=== PATIENT | female | born 2000 | race Caucasian/White ===

== ENCOUNTER 2022-10-16 11:26 | Outpatient (CLI) | payer BC, SELFPAY ==
[2022-10-16 12:08] LABS: Basophils Percent Auto 0.3 % (0.2-1.2); Eosinophils Absolute Auto 0.1 K/mm3 (0-0.3); Eosinophils Percent Auto 1.3 % (0-4.4); Hematocrit 39.5 % (37.0-47.0); Hemoglobin 13.5 g/dL (12.0-15.0); Immature Granulocyte Absolute 0.07 K/mm3 (0.00-0.031); Immature Granulocyte Percent A 0.6 % (0-0.5); Lymphocytes Absolute Auto 2.64 K/mm3 (0.9-3.2); Lymphocytes Percent Auto 23.6 % (18.3-44.2); Mean Corpuscular HGB Conc 34.2 g/dl (32-36); Mean Corpuscular Hemoglobin 30.7 pg (26-34); Mean Corpuscular Volume 89.8 fl (80-100); Mean Platelet Volume 9.6 fl (7.4-10.4); Monocytes Absolute Auto 0.5 K/mm3 (0.1-0.6); Monocytes Percent Auto 4.4 % (2.6-8.5); Neutrophils Absolute Auto 7.8 K/mm3 (1.3-6.7); Neutrophils Percent Auto 69.8 % (45.5-73.1); Platelet Count Result 246 k/mm3 (150-375); Red Cell Distribution Width 12.7 % (11.5-14.5); White Blood Count 11.2 K/mm3 (4.5-10.0)
[2022-10-16 12:57] LABS: HIV 1/2 Ab P24 Ag Result Negative (Negative)
[2022-10-16 13:26] LABS: Hepatitis B Surface Antigen Negative (Negative); Rubella IgG Antibody 9.7 IU/ML
[2022-10-19 08:44] LABS: Rapid Plasma Reagin Non-Reactive (NonReactive)
== END 2022-10-16 11:27 | disposition home or self-care (01) ==
LOC: ANHLAB 11:29
PROVIDERS: Visit Provider Student in an Organized Health Care Education/Training Program
DX: N91.2 Amenorrhea, unspecified (principal)
CPT/HCPCS: 36415; 84702; 85025; 86592; 86644; 86703; 86747; 86762; 86787; 86850; 86900; 86901; 87086; 87340; G0432

== ENCOUNTER 2023-01-23 10:57 | Outpatient (CLI) | payer BC, SELFPAY ==
[2023-01-23 12:36] LABS: Basophils Absolute Auto 0.1 K/mm3 (0.0-0.1); Basophils Percent Auto 0.4 % (0.2-1.2); Eosinophils Absolute Auto 0.1 K/mm3 (0-0.3); Eosinophils Percent Auto 0.8 % (0-4.4); Hematocrit 36.9 % (37.0-47.0); Hemoglobin 12.2 g/dL (12.0-15.0); Immature Granulocyte Absolute 0.27 K/mm3 (0.00-0.031); Lymphocytes Absolute Auto 2.34 K/mm3 (0.9-3.2); Lymphocytes Percent Auto 17.3 % (18.3-44.2); Mean Corpuscular HGB Conc 33.1 g/dl (32-36); Mean Corpuscular Volume 93.9 fl (80-100); Monocytes Percent Auto 7.3 % (2.6-8.5); Neutrophils Absolute Auto 9.7 K/mm3 (1.3-6.7); Neutrophils Percent Auto 72.2 % (45.5-73.1); Platelet Count Result 213 k/mm3 (150-375); Red Blood Count 3.93 M/mm3 (4.2-5.4); Red Cell Distribution Width 12.6 % (11.5-14.5); White Blood Count 13.5 K/mm3 (4.5-10.0)
[2023-01-23 12:51] LABS: Glucose 1 Hour PP 50gm Dose 101 mg/dL
[2023-01-23 13:15] LABS: Free T4 Free Thyroxine 0.86 ng/mL (0.78-2.19)
[2023-01-23 13:33] LABS: HIV 1/2 Ab P24 Ag Result Negative (Negative)
== END 2023-01-23 10:58 | disposition home or self-care (01) ==
LOC: ANHLAB 10:59
PROVIDERS: PCP Nurse Practitioner Family; Visit Provider Obstetrics & Gynecology
DX: E03.9 Hypothyroidism, unspecified (principal); O99.280 Endocrine, nutritional and metabolic diseases complicating pregnancy, unspecified trimester; Z3A.00 Weeks of gestation of pregnancy not specified
CPT/HCPCS: 36415; 82947; 84439; 84443; 85025; 86703; G0432

== ENCOUNTER 2023-03-01 09:28 | Outpatient (CLI) | payer BC, SELFPAY ==
[2023-03-01 09:56] VITALS: BP 130/94; PULSE 98
[2023-03-01 10:01] VITALS: BP 125/83; PULSE 103
[2023-03-01 10:16] VITALS: BP 125/80; PULSE 93
[2023-03-01 10:31] VITALS: BP 119/74; PULSE 91
[2023-03-01 10:46] VITALS: BP 121/81; PULSE 99
--- NOTE | 2023-03-01 10:50 | PC.NURSE ---
Called Dr. Reza with pt status. Informed of generalized rash that has improved without treatment. Pt states that she is still itchy, but the raised rash is gone. Headache is off and on the past couple of days, relieved by Tylenol. BPs given. Informed of FHTs below baseline a couple of times, but baby is moving a large amount. May D/C home.
== END 2023-03-01 11:10 ==
LOC: ANHOBOP 03-02 06:51 → ANHOBPP 03-02 06:51
PROVIDERS: PCP Nurse Practitioner Family; Visit Provider Obstetrics & Gynecology
DX: R51.9 Headache, unspecified (principal); R21 Rash and other nonspecific skin eruption
CPT/HCPCS: 59025; 99199

== ENCOUNTER 2023-03-15 10:02 | Outpatient (CLI) | payer BC, SELFPAY ==
[2023-03-15 10:30] VITALS: BP 122/78; PULSE 94
[2023-03-15 10:30] LABS: Basophils Percent Auto 0.4 % (0.2-1.2); Eosinophils Absolute Auto 0.1 K/mm3 (0-0.3); Eosinophils Percent Auto 1.1 % (0-4.4); Hematocrit 40.4 % (37.0-47.0); Immature Granulocyte Absolute 0.09 K/mm3 (0.00-0.031); Immature Granulocyte Percent A 0.9 % (0-0.5); Lymphocytes Absolute Auto 2.09 K/mm3 (0.9-3.2); Lymphocytes Percent Auto 20.7 % (18.3-44.2); Mean Corpuscular HGB Conc 32.2 g/dl (32-36); Mean Corpuscular Hemoglobin 29.7 pg (26-34); Mean Corpuscular Volume 92.2 fl (80-100); Monocytes Absolute Auto 0.7 K/mm3 (0.1-0.6); Monocytes Percent Auto 7.1 % (2.6-8.5); Neutrophils Absolute Auto 7.1 K/mm3 (1.3-6.7); Neutrophils Percent Auto 69.8 % (45.5-73.1); Platelet Count Result 180 k/mm3 (150-375); Red Blood Count 4.38 M/mm3 (4.2-5.4); Red Cell Distribution Width 12.5 % (11.5-14.5); White Blood Count 10.1 K/mm3 (4.5-10.0)
[2023-03-15 10:41] LABS: Alanine Aminotransferase 23 U/L (6-35); Albumin Level 3.4 g/dL (3.5-5.1); Alkaline Phosphatase 148 U/L (38-126); Anion Gap 6 mmol/L (8-16); Aspartate Amino Transferase 24 U/L (14-36); Bilirubin,Total 0.4 mg/dL (0.2-1.3); Blood Urea Nitrogen 8 mg/dL (7-17); Calcium 8.4 mg/dL (8.4-10.2); Carbon Dioxide 24 mmol/L (22-30); Chloride 103 mmol/L (98-107); Estimated Glomerular Filt Rate > 60; Glucose 76 mg/dL (65-110); Potassium 3.9 mmol/L (3.4-5.0); Sodium 133 mmol/L (137-145)
[2023-03-15 10:45] VITALS: BP 115/78; PULSE 93
[2023-03-15 11:00] VITALS: BP 111/70; PULSE 83
[2023-03-15 11:15] VITALS: BP 106/72; PULSE 84
[2023-03-15 11:37] LABS: Appearance Urine Slightly Cloudy (Clear); Bilirubin Urine Negative (Negative); Blood Urine 3+ (Negative); Color Urine Yellow (Yellow); Glucose Urine UA Negative (Negative); Ketones Urine Negative (Negative); Leukocyte Esterase Ur 1+ LEU/UL (NEGATIVE); Nitrate Urine Negative (Negative); Protein Urine Trace mg/dL (Negative); Specific Grav Ur 1.015 (1.001-1.035); Urobilinogen Urine 0.2 mg/dL (<2.0)
[2023-03-15 11:39] LABS: Add Urine Microscopic? YES
[2023-03-15 11:48] LABS: Creatinine Urine 145.4 mg/dL
[2023-03-15 11:50] VITALS: BP 120/78; PULSE 97
[2023-03-15 11:54] LABS: Bacteria Urine 4+ /hpf; Need Manual Microscopic Reviewed; RBC Urine 51-100 /hpf (0-2); Squamous Epithelial Cell Urine Many /hpf (Few); WBC Urine 21-50 /hpf (0-3)
[2023-03-15 12:31] LABS: Total Protein Urine Random 10 mg/dL; Ur Ttl Prot Creatinine Ratio 0.07 mg/mg (0-0.20)
== END 2023-03-15 11:50 | disposition home or self-care (01) ==
LOC: ANHOBOP 10:07 → ANHOBPP 10:10
PROVIDERS: PCP Nurse Practitioner Family; Visit Provider Obstetrics & Gynecology
DX: O26.899 Other specified pregnancy related conditions, unspecified trimester (principal); R03.0 Elevated blood-pressure reading, without diagnosis of hypertension
CPT/HCPCS: 36415; 59025; 80053; 81001; 82570; 84156; 84550; 85025; 87086; 87088; 99199

== ENCOUNTER 2023-03-27 06:58 | Observation (INO) | payer BC, SELFPAY ==
[2023-03-27 10:43] VITALS: BMI 32.0
--- NOTE | 2023-03-27 10:43 | LDADM ---
This patient, Laura Vincent, was admitted to Labor/Delivery/Recovery 105 on 03/27/23 at 06:58. Plans for labor, pain management and were discussed with patient. Patient/family oriented to hospital policies and general routines including ID bracelet, bed and alarms, visiting hours, pain management, procedures, bathroom and other care routines, personal items, smoking policy, room service/diet and guest tray routines, infant security routines, and visiting hours. Patient/Family are encouraged to report perceived risks to care and to ask questions if they do not understand what they are told or what they should do. See OBIX for further documentation.
--- NOTE | 2023-04-05 09:50 | PM.OBTRLD ---
OB - Triage/Final Diagnosis Visit Information Comments/Additional reasons for admission: I have assessed the risk for this patient, Laura Vincent, and determined that she would benefit from observation care. Final Diagnosis (1) False labor: Code(s): O47.9 - False labor, unspecified Status: Acute
== END 2023-03-27 09:12 | disposition home or self-care (01) ==
PROVIDERS: Admitting Provider Obstetrics & Gynecology; PCP Nurse Practitioner Family; Visit Provider Obstetrics & Gynecology
DX: O47.1 False labor at or after 37 completed weeks of gestation (principal); Z3A.37 37 weeks gestation of pregnancy
CPT/HCPCS: G0378; G0379

== ENCOUNTER 2023-03-28 17:51 | Observation (INO) | payer BC, SELFPAY ==
--- NOTE | 2023-03-28 17:51 | OBADM ---
This patient, Laura Vincent, admitted to the OB room Labor/Delivery/Recovery 104 for observation. Patient/family oriented to hospital policies and general routines including ID bracelet, bed and alarms, visiting hours, pain management, procedures, bathroom and other care routines, personal items, smoking policy, room service/diet, and visiting hours. Patient/Family are encouraged to report perceived risks to care and to ask questions if they do not understand what they are told or what they should do.
--- NOTE | 2023-03-28 20:55 | PC.NURSE ---
Dr. White updated on patient maternal and assessments. Notified of repeated SVE after monitoring. FHT appropriate for gestational age. Contractions palpate mild-moderate with soft abdomen between. Orders received.
--- NOTE | 2023-03-28 20:56 | PC.NURSE ---
Plan of care discussed with patient. Patient offered to continue monitoring at the hospital or she could go home to labor. Patient states she would like to go home at this time.
[2023-03-28 21:00] VITALS: RESP 16; TEMP 36.7
== END 2023-03-28 21:23 | disposition home or self-care (01) ==
PROVIDERS: Admitting Provider Obstetrics & Gynecology; PCP Nurse Practitioner Family; Visit Provider Obstetrics & Gynecology
DX: O47.1 False labor at or after 37 completed weeks of gestation (principal); Z3A.37 37 weeks gestation of pregnancy
CPT/HCPCS: G0378; G0379

== ENCOUNTER 2023-04-02 07:27 | Outpatient (RCR) | payer BC, SELFPAY ==
[2023-03-17 09:16] VITALS: BP 110/63
[2023-03-22 14:21] LABS: Basophils Percent Auto 0.2 % (0.2-1.2); Eosinophils Absolute Auto 0.1 K/mm3 (0-0.3); Eosinophils Percent Auto 0.4 % (0-4.4); Hematocrit 39.4 % (37.0-47.0); Hemoglobin 12.7 g/dL (12.0-15.0); Immature Granulocyte Absolute 0.11 K/mm3 (0.00-0.031); Immature Granulocyte Percent A 0.9 % (0-0.5); Lymphocytes Absolute Auto 2.16 K/mm3 (0.9-3.2); Lymphocytes Percent Auto 17.6 % (18.3-44.2); Mean Corpuscular HGB Conc 32.2 g/dl (32-36); Mean Corpuscular Hemoglobin 29.3 pg (26-34); Mean Platelet Volume 11.7 fl (7.4-10.4); Monocytes Absolute Auto 0.7 K/mm3 (0.1-0.6); Monocytes Percent Auto 5.9 % (2.6-8.5); Neutrophils Absolute Auto 9.2 K/mm3 (1.3-6.7); Platelet Count Result 163 k/mm3 (150-375); Red Blood Count 4.33 M/mm3 (4.2-5.4); Red Cell Distribution Width 12.5 % (11.5-14.5); White Blood Count 12.3 K/mm3 (4.5-10.0)
[2023-03-22 14:28] LABS: Appearance Urine Cloudy (Clear); Bacteria Urine 3+ /hpf; Bilirubin Urine Negative (Negative); Blood Urine Negative (Negative); Color Urine Yellow (Yellow); Glucose Urine UA Negative (Negative); Ketones Urine Negative (Negative); Leukocyte Esterase Ur 1+ LEU/UL (NEGATIVE); Nitrate Urine Negative (Negative); Protein Urine Negative (Negative); RBC Urine 0-2 /hpf (0-2); Specific Grav Ur 1.024 (1.001-1.035); Squamous Epithelial Cell Urine Few /hpf (Few); Urobilinogen Urine 0.2 mg/dL (<2.0); WBC Urine 21-50 /hpf (0-3); pH Urine 6.5 (5.0-9.0)
[2023-03-22 14:32] LABS: Alanine Aminotransferase 22 U/L (6-35); Albumin Level 3.3 g/dL (3.5-5.1); Alkaline Phosphatase 140 U/L (38-126); Anion Gap 7 mmol/L (8-16); Aspartate Amino Transferase 27 U/L (14-36); Bilirubin,Total 0.4 mg/dL (0.2-1.3); Blood Urea Nitrogen 11 mg/dL (7-17); Calcium 8.7 mg/dL (8.4-10.2); Carbon Dioxide 21 mmol/L (22-30); Chloride 105 mmol/L (98-107); Estimated Glomerular Filt Rate > 60; Glucose 85 mg/dL (65-110); Sodium 133 mmol/L (137-145); Uric Acid 4.1 mg/dL (2.5-7.5)
[2023-03-22 14:36] LABS: Add Urine Microscopic? YES
[2023-03-22 14:43] VITALS: BP 126/84
[2023-03-22 17:07] LABS: Creatinine Urine 140.5 mg/dL; Total Protein Urine Random 12 mg/dL; Ur Ttl Prot Creatinine Ratio 0.09 mg/mg (0-0.20)
[2023-03-26 16:29] LABS: Creatinine Urine 113.5 mg/dL; Total Protein Urine Random 12 mg/dL; Ur Ttl Prot Creatinine Ratio 0.11 mg/mg (0-0.20)
[2023-03-26 17:05] VITALS: BP 135/81
[2023-04-02 08:06] VITALS: BP 124/82; PULSE 84
== END 2023-06-15 23:59 | disposition home or self-care (01) ==
LOC: ANHOBOP 07:27
PROVIDERS: PCP Nurse Practitioner Family; Visit Provider Obstetrics & Gynecology
DX: O36.8130 Decreased fetal movements, third trimester, not applicable or unspecified (principal); Z3A.35 35 weeks gestation of pregnancy; Z3A.36 36 weeks gestation of pregnancy; Z3A.37 37 weeks gestation of pregnancy
CPT/HCPCS: 36415; 59025; 80053; 81001; 82570; 84156; 84550; 85025; 87086; 87088

== ENCOUNTER 2023-04-10 05:59 | Inpatient (IN) | payer BC, SELFPAY ==
[2023-04-10] VITALS (140 sets, daily range): BP systolic 97–158; BP diastolic 54–101; PULSE 65–227; RESP 16–18; TEMP 36.4–37; O2SAT 91–100; BMI 32.4
--- NOTE | 2023-04-10 06:49 | LDADM ---
This patient, Laura Vincent, was admitted to Labor/Delivery/Recovery 107 on 04/10/23 at 05:59. Plans for labor, pain management and were discussed with patient. Patient/family oriented to hospital policies and general routines including ID bracelet, bed and alarms, visiting hours, pain management, procedures, bathroom and other care routines, personal items, smoking policy, room service/diet and guest tray routines, infant security routines, and visiting hours. Patient/Family are encouraged to report perceived risks to care and to ask questions if they do not understand what they are told or what they should do. See OBIX for further documentation.
[2023-04-10 06:59] LABS: Basophils Absolute Auto 0.1 K/mm3 (0.0-0.1); Basophils Percent Auto 0.4 % (0.2-1.2); Eosinophils Absolute Auto 0.1 K/mm3 (0-0.3); Eosinophils Percent Auto 0.8 % (0-4.4); Hematocrit 41.2 % (37.0-47.0); Hemoglobin 13.3 g/dL (12.0-15.0); Immature Granulocyte Absolute 0.12 K/mm3 (0.00-0.031); Immature Granulocyte Percent A 0.8 % (0-0.5); Lymphocytes Absolute Auto 3.12 K/mm3 (0.9-3.2); Mean Corpuscular HGB Conc 32.3 g/dl (32-36); Mean Corpuscular Hemoglobin 28.4 pg (26-34); Neutrophils Absolute Auto 9.8 K/mm3 (1.3-6.7); Platelet Count Result 179 k/mm3 (150-375); Red Blood Count 4.68 M/mm3 (4.2-5.4); Red Cell Distribution Width 13.2 % (11.5-14.5); White Blood Count 14.2 K/mm3 (4.5-10.0)
[2023-04-10] MEDS: LACTATED RINGERS 1,000 ML 125 ML IV CONT ×2 (07:30→09:01)
[2023-04-10] MEDS: OXYTOCIN 30 UNITS/NS 500 ML 30 UNITS/500 ML BAG 6 UNITS IV CONT (07:30)
--- NOTE | 2023-04-10 07:47 | WPDOBADMIT ---
Obstetrics - Admit Note Admission Note: record reviewed. No pertinent additions to the history and/or any subsequent changes in the physical findings that are not consistent with the expected course of the were found. Additions to the history and/or subsequent changes in the physical findings follow. None.
--- NOTE | 2023-04-10 07:47 | WPDHPUPDATE1 ---
History and Physical Update Update Date/Time: 04/10/23 07:47 History and Physical has been reviewed, including an updated exam of the patient. There are NO changes in the patient's condition. Risks, benefits, and alternatives have been discussed and questions answered. Patient agrees to proceed with procedure.
[2023-04-10] MEDS: fentaNYL CITRATE INJ (*CRX) 100 MCG/2 ML VIAL 50 MCG IV PUSH (08:07)
--- NOTE | 2023-04-10 08:20 | WPDANESEPP ---
Anes - Eval Pre Procedure Procedure: Labor Pain Management Date/Time: 04/10/23 08:20 Surgeon: Juaquin Preop Diagnosis: Pain during labor Pre Op Diagnosis: IOL Patient Data Age: 22 Gender: F Height: 1.6 m Weight: 83 kg Last Vital Signs Temp 97.7 F 04/10/23 06:34 Pulse 75 04/10/23 08:09 Resp 18 04/10/23 06:34 BP 132/89 04/10/23 08:09 Pulse Ox 94 04/10/23 08:19 O2 Del Method Room Air 04/10/23 06:48 Allergies Allergy/AdvReac Type Severity Reaction Status Date / Time No Known Allergies Allergy Verified 04/06/23 10:27 Home Medications Medication Instructions Recorded Confirmed Type levothyroxine 25 mcg capsule 25 mcg PO DAILY 01/14/22 04/10/23 History vit no.95-ferrous 1 tablet PO DAILY 04/02/23 04/10/23 History fumarate 28 mg-folic acid 800 mcg tablet () Laboratory Tests 04/10/23 06:28 WBC 14.2 H K/mm3 (4.5-10.0) RBC 4.68 M/mm3 (4.2-5.4) Hgb 13.3 g/dL (12.0-15.0) Hct 41.2 % (37.0-47.0) MCV 88.0 fl (80-100) MCH 28.4 pg (26-34) MCHC 32.3 g/dl (32-36) RDW 13.2 % (11.5-14.5) Plt Count 179 k/mm3 (150-375) MPV 12.0 H fl (7.4-10.4) Immature Gran % (Auto) 0.8 H % (0-0.5) Neut % (Auto) 69.0 % (45.5-73.1) Lymph % (Auto) 22.0 % (18.3-44.2) Russell % (Auto) 7.0 % (2.6-8.5) Eos % (Auto) 0.8 % (0-4.4) Baso % (Auto) 0.4 % (0.2-1.2) Lymph # (Auto) 3.12 K/mm3 (0.9-3.2) Russell # (Auto) 1.0 H K/mm3 (0.1-0.6) Eos # (Auto) 0.1 K/mm3 (0-0.3) Baso # (Auto) 0.1 K/mm3 (0.0-0.1) Abs Immat Gran (auto) 0.12 H K/mm3 (0.00-0.031) Absolute Neuts (auto) 9.8 H K/mm3 (1.3-6.7) Absolute Nucleated RBC 0.0 K/mm3 (0.0-0.012) Nucleated RBC % 0.0 % (0.0-0.2) RPR Pending Blood Type A Positive Antibody Screen Negative Patient hx anesthesia problems: none Family hx anesthesia problems: none Results Review: All pre-operative results and documents have been reviewed as part of the pre-operative evaluation. [facility] Surgical History Surgical History [place] teeth extracted Family History Family History Other Patient denies significant medical history Social History Social History Smoking status: Never smoker Alcohol intake: former Alcohol use details: socially Substance use: never Substance use type: does not use Lack of Transportation: No Lack of Food: Never True Current Housing: I Have Housing Concerned About Future Housing: No Difficulty Paying Gas/Electric Bills: No Difficulty Paying for Meds: No Currently Unemployed: No Education: Associate Degree Difficulty w/ Childcare or Family Care: No Living arrangements: with family Additional living arrangements comments: Occupation/Education: occupation Additional occupation/education comments: teacher Gender identity (if verbalized by the patient): Female Sexual Orientation (if Verbalized by the Patient): Straight or Heterosexual Spiritual care concerns: No Exam Day of Procedure 04/10/23 08:20
[2023-04-10] MEDS: ONDANSETRON INJ 4 MG/2 ML VIAL IV PUSH (15:30)
[2023-04-10] MEDS: OXYTOCIN 30 UNITS/NS 500 ML 30 UNITS/500 ML BAG 125 UNITS IV CONT (16:45)
--- NOTE | 2023-04-10 16:52 | PM.OBPRVD ---
OB - Vaginal Delivery Note Procedure Delivery date: 04/10/23 Induction method: AROM Delivery augmentation: Pitocin Delivery monitor: External FHT and External Uterine Route of delivery: Episiotomy description: None Laceration Description: Perineal - 3rd Degree Delivery repair: vicryl and chromic Specimen: No Quantitative Blood Loss (ml): 500 Anesthesia type: Epidural Disposition: Floor Complications: No immediate complications Narrative: Draped usual manner this procedure. Maternal expulsive efforts readily delivered vertex with nuchal cord noted and delivered through. Rest of baby was delivered difficulty. Cord clamped cut and placenta delivered spontaneously. Uterus was well contracted. Cervix vagina and vulva were inspected with third-degree laceration noted. rectal sphincter was approximated using 0 Vicryl with 3 interrupted sutures with good approximation noted. The vaginal mucosa was then approximated using 2-0 chromic in a running interlocking manner , deep tissue was approximated in a subcuticular layer with good approximation as well. Uterus again Inspected and was well contracted with minimal bleeding. [place] Baby Weeks of gestation at delivery: 39 gender: Female Weight (pounds): 7 Weight (ounces): 8 presentation: vertex position: Right Occiput Anterior Placenta delivery description: Spontaneous Cord Vessel Description: 3 Vessels, Nuchal Cord and Reduced score one minute: 7 score five minutes: 9 AMG Delivery Billing Delivery Delivery: Delivery Charge
[2023-04-10] MEDS: WITCH HAZEL 40 PADS 1 PAD TOPICAL (18:00)
[2023-04-10] MEDS: BENZOCAINE 20% AER SPR (*SP) 56 GM CAN 1 SPRAY TOPICAL (18:00)
[2023-04-10] MEDS: HYDROcodone/acetaminophen (*CRX) 5-325 MG TABLET 1 TAB PO ×2 (19:40→22:41)
[2023-04-10] MEDS: IBUPROFEN 600 MG TABLET PO (19:40)
--- NOTE | 2023-04-10 20:25 | OBPPTRN ---
Patient transferred to post room # 282 via ( wheelchair ). Support person present. Oriented to unit, room, information board, rooming in, admission packet and security measures. Patient verbalizes understanding.
[2023-04-11] VITALS: BP 118/79; PULSE 76; RESP 18; TEMP 36.6; O2SAT 97
[2023-04-11] MEDS: HYDROcodone/acetaminophen (*CRX) 5-325 MG TABLET 1 TAB PO ×4 (04:34→21:35)
[2023-04-11] MEDS: IBUPROFEN 600 MG TABLET PO ×4 (04:34→21:35)
[2023-04-11 06:09] LABS: Hematocrit 34.9 % (37.0-47.0); Hemoglobin 11.2 g/dL (12.0-15.0)
--- NOTE | 2023-04-11 07:41 | PM.OBDSVD ---
DS: Admitting Diagnosis Discharge Date 04/11/2023 Admitting Diagnosis DS: Discharge Diagnosis Discharge Diagnosis (1) , delivered: Code(s): O80 - Encounter for full-term uncomplicated delivery Status: Acute OB - DS: Summary OB Procedures : None OB Procedures Intrapartum: Spontaneous Vag Delivery OB Procedures: : None Peripartum Data Laceration Description: Perineal - 3rd Degree Episiotomy description: None Time Spent with Patient Time attestation: Total time spent providing and/or coordinating discharge services: DS: Data Data Completed and Pending Labs on day of discharge: Labs from last 24 hours 04/11/23 04:40 Hgb 11.2 L Hct 34.9 L Discharge Plan Discharge Discharging Clinician: Ashish Reza Patient Disposition: Home, Self-Care Activity: as tolerated Diet: as tolerated Patient Instructions: Antibiotic Form Stand Alone Forms: General Discharge Information Follow-up/Referrals: Ashish Reza MD [Physician] - 3 Weeks Discharge Medications: New ibuprofen 600 mg Tablet 600 mg PO Q6H PRN (Reason: Cramping) Qty: 30 0RF Continued levothyroxine 25 mcg capsule 25 mcg PO DAILY PNV cmb#95-ferrous fumarate-FA [] 28 mg iron- 800 mcg Tablet 1 tablet PO DAILY Date of admission: 04/10/23 05:59 Primary Care Provider: Misa,Ronit Rizzo Admitting Provider: Ashish Reza Attending physician on admission: Ashish Reza Condition: Stable
[2023-04-11] MEDS: DOCUSATE SODIUM 100 MG CAPSULE PO ×2 (08:47→16:34)
[2023-04-11] MEDS: MULTIVIT/MIN/PREN/FOL AC/IRON TABLET 1 TAB PO (08:47)
[2023-04-11] MEDS: LEVOTHYROXINE SODIUM 25 MCG TABLET PO (08:47)
[2023-04-11 08:50] VITALS: BP 111/72; PULSE 69; RESP 18; TEMP 36.3
[2023-04-11 11:43] VITALS: BP 107/66; PULSE 71; RESP 17; TEMP 36.4; O2SAT 98
--- NOTE | 2023-04-11 15:25 | WPDANLDPN2 ---
Anes-Prog Note L&D Date/Time: 04/11/23 15:25 Comfortable throughout: labor and delivery Neuraxial method: epidural Epidural/Spinal procedure site: clean & non-tender Neuro status: Neuro function grossly intact. Cardiovascular status: normal Respiratory status: normal Airway patency: baseline Mental status: baseline Post-Op hydration status: normal Vital Signs: Last Vital Signs Temp 97.6 F 04/11/23 11:43 Pulse 71 04/11/23 11:43 Resp 17 04/11/23 11:43 BP 107/66 04/11/23 11:43 Pulse Ox 98 04/11/23 11:43 O2 Del Method Room Air 04/10/23 06:48 Pain score (VAS): 0 I/O: Intake & Output 04/11/23 04/11/23 04/11/23 00:59 07:59 15:59 Intake Total Output Total Balance Post-procedural complaints: none Patient feedback: Patient satisfied with anesthetic care.
[2023-04-11 21:30] VITALS: BP 117/76; PULSE 82; RESP 16; TEMP 36.8; O2SAT 98
[2023-04-11] MEDS: WITCH HAZEL 40 PADS 1 PAD TOPICAL (21:35)
[2023-04-12] MEDS: IBUPROFEN 600 MG TABLET PO (05:07)
[2023-04-12] MEDS: HYDROcodone/acetaminophen (*CRX) 5-325 MG TABLET 1 TAB PO ×2 (05:07→09:50)
[2023-04-12] MEDS: MULTIVIT/MIN/PREN/FOL AC/IRON TABLET 1 TAB PO (07:14)
[2023-04-12] MEDS: LEVOTHYROXINE SODIUM 25 MCG TABLET PO (07:14)
[2023-04-12] MEDS: DOCUSATE SODIUM 100 MG CAPSULE PO (07:14)
[2023-04-12 07:40] VITALS: BP 116/76; PULSE 74; RESP 16; TEMP 36.3; O2SAT 99
[2023-04-12 08:14] LABS: Rapid Plasma Reagin Non-Reactive (NonReactive)
[2023-04-13 09:24] VITALS: BP 122/83; PULSE 82; RESP 18; TEMP 36.9; O2SAT 100
== END 2023-04-12 11:36 | disposition home or self-care (01) | DRG 768 ==
LOC: ANHLDR 06:20 → ANHOB2 21:22
PROVIDERS: Admitting Provider Obstetrics & Gynecology; PCP Nurse Practitioner Family; Visit Provider Obstetrics & Gynecology
DX: O69.81X0 Labor and delivery complicated by cord around neck, without compression, not applicable or unspecified (principal); Z37.0 Single live birth; O70.20 Third degree perineal laceration during delivery, unspecified; Z23 Encounter for immunization; Z3A.39 39 weeks gestation of pregnancy
CPT/HCPCS: 36415; 85014; 85018; 85025; 86592; 86850; 86900; 86901; 90471; 90686; A9270; G0008; J2405; J2590; J2795; J3010; J7120

== ENCOUNTER 2023-09-07 11:14 | Outpatient (CLI) | payer OTHER, SELFPAY ==
[2023-09-07 14:16] LABS: Free T4 Free Thyroxine 1.18 ng/mL (0.78-2.19)
[2023-09-11 02:46] LABS: DHEA-Sulfate 105 mcg/dL (18-391); Thyroid Peroxidase Antibodies <1 IU/mL (<9)
[2023-09-12 12:05] LABS: Testosterone Free 0.9 pg/mL (0.1-6.4); Testosterone Total 23 ng/dL (2-45)
== END 2023-09-07 11:15 | disposition home or self-care (01) ==
LOC: ANHLAB 11:19
PROVIDERS: PCP Nurse Practitioner Family; Visit Provider Obstetrics & Gynecology
DX: N93.9 Abnormal uterine and vaginal bleeding, unspecified (principal); R63.5 Abnormal weight gain
CPT/HCPCS: 36415; 82627; 83498; 84402; 84403; 84439; 84443; 86376